=== PATIENT | male | born 2005 | race Caucasian/White ===

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

== ENCOUNTER 2023-05-05 12:17 | Emergency (ER) | payer BC, MEDICAID, SELFPAY ==
[2023-05-05 12:17] VITALS: BP 177/95; PULSE 100; RESP 14; TEMP 36.2; O2SAT 99
[2023-05-05 12:20] VITALS: BP 146/83; PULSE 97; RESP 14; O2SAT 98
--- NOTE | 2023-05-05 12:33 | RAD_ITS ---
STUDY: X-RAY - LEFT KNEE REASON FOR EXAM: Male, 17 years old. Knee pain TECHNIQUE: 3 view(s) of the knee. COMPARISON: None. FINDINGS: Normal visualized distal femur. Normal visualized proximal tibia and fibula. Normal proximal tibiofibular articulation. Normal medial femorotibial compartment. Normal lateral femorotibial compartment. Normal patellofemoral articulation. The soft tissue structures are unremarkable. RAD/Knee 3 Views IMPRESSION: Normal x-ray examination of the knee. Electronically Signed: José Miguel Reza MD at 13:21 EDT ,
--- NOTE | 2023-05-05 12:37 | ED.VIS.LOWEX ---
HPI <MILE Arceo - Last Filed: 05/05/23 17:28> History of Present Illness Chief Complaint: Lower Extremity Injury Narrative Narrative: Patient presents today with pain to his left knee. He reports that he was at work driving a large tree limb and was walking sideways when it felt like his patella popped out of place and then clicked back in, however he felt instant pain to his left knee and is having a hard time bearing weight onto his left leg without pain. He reports that he thinks his patella has spontaneously popped out in the past but went back into place easily. He originally went to urgent care but was told that they did not have an x-ray tech and presents here for evaluation. PFSH <MILE Arceo - Last Filed: 05/05/23 17:28> [facility] Home Medications amoxicillin 500 mg-potassium clavulanate 125 mg tablet (Augmentin) 1 ea PO TID #30 tabs 07/22/16 [Rx Last Taken Unknown] Allergy/AdvReac Type Severity Reaction Status Date / Time No Known Allergies Allergy Verified 05/05/23 12:18 Social History Smoking Status: Never smoker ROS <MILE Arceo - Last Filed: 05/05/23 17:28> ROS ED Constitutional Constitutional ED: Denies chills or fever(s) Cardiovascular Cardiovascular: Denies chest pain Respiratory/Chest Respiratory/Chest: Denies cough or dyspnea Gastrointestinal Gastrointestinal: Denies abdominal pain, nausea or vomiting Genitourinary Genitourinary ED: Denies dysuria, hematuria or urinary urgency Musculoskeletal Musculoskeletal: Reports arthralgias; Denies myalgias Integumentary Reports Abrasions Neurologic Neurologic: Denies paresthesias Allergic/Immunologic Allergic/Immunologic ED: Denies lip swelling, mouth swelling or urticaria EXAM <MILE Arceo - Last Filed: 05/05/23 17:28> Physical Exam Const Vital Signs: 05/05/23 12:17 05/05/23 12:20 05/05/23 13:09 Temperature 97.2 F L 97.6 F L Temperature Source Temporal Pulse Rate 100 97 64 Respiratory Rate 14 14 14 Blood Pressure 177/95 H 146/83 H 128/78 H Blood Pressure Mean 122 104 94 Pulse Ox 99 98 99 Oxygen Delivery Method Room Air Room Air Positive well nourished, well developed and no apparent distress General Appearance ED: well developed HEENT Reports normocephalic and head/scalp atraumatic Mouth ED: Yes moist mucous membranes normal Eyes PERRL and EOMs intact bilaterally Neck full ROM and supple Chest Wall inspection of chest normal Resp normal respiratory effort and clear to auscultation bilaterally Cardio regular rate and regular rhythm GI soft to palpation, non-tender, non-distended and no masses Back/Spine normal ROM and normal to inspection Extremity normal to inspection and full ROM Extremity Narrative: Flexion extension is intact, no joint effusion, generalized pain to palpation, especially to the medial aspect of the left knee. Negative anterior and posterior drawer test. Neuro oriented x3, CN's II-XII intact bilaterally, moves all extremities, no focal motor deficits and no sensory deficits noted Sensorium / Orientation: awake and alert Psych mental status grossly normal and thought process normal Skin no rashes or lesions noted and no wounds <Dr. Juanjose Tompkins MD - Last Filed: 05/05/23 13:08> Physical Exam Const Vital Signs: 05/05/23 12:17 05/05/23 12:20 05/05/23 13:09 Temperature 97.2 F L 97.6 F L Temperature Source Temporal Pulse Rate 100 97 64 Respiratory Rate 14 14 14 Blood Pressure 177/95 H 146/83 H 128/78 H Blood Pressure Mean 122 104 94 Pulse Ox 99 98 99 Oxygen Delivery Method Room Air Room Air [facility] <MILE Arceo - Last Filed: 05/05/23 17:28> [facility] Narrative Medical decision making narrative: Patient presenting today with left knee pain to the lateral aspect of his knee, no joint effusion, intact flexion and extension. There is no laxity. X-ray was obtained and negative for any bony abnormality. He was given a brace from urgent care, I have encouraged that he continue using this. He was given ibuprofen for pain and have encouraged NSAIDs for his pain as needed. RICE instructions given. I will give him a orthopedic referral and he will be discharged home in stable condition and is comfortable with plan. I have personally performed a face to face assessment of the patient and have reviewed the LORI Note. I performed a substantive portion of the visit including all aspects of the following. My corbin findings include: History is [17-year-old male has a history knee pain. He is never had it evaluated. 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 Today he felt 2 pops and has pain lateral to his left knee. Denies any fall injury or trauma. No prior knee surgery. No redness, swelling or fever. Discomfort with movement.] Exam is [well-appearing 17-year-old male. Vital signs stable afebrile. HEENT exam normal. Lungs clear. Heart regular rhythm. Chest wall ribs nontender. Abdomen soft nontender. Moving all 4 extremities. He has his left knee flexed at a 90 degree position. He can do full flexion. He has more discomfort with extension and can extend to about 180 degrees. There is no effusion. He has tenderness on the lateral outside aspect of his left knee. There is no redness or warmth. No significant swelling. Kneecaps in good position. Quadriceps patellar and infrapatellar tendon are intact. ACL and PCL are intact. As is his lateral collateral medial collateral ligaments. Distally his left ankle and foot are nontender. Normal dorsi plantarflexion. Normal strength and sensation.] Medical Decision Making [left knee x-ray being obtained.] Other additions or changes: [None] Radiography X-Ray: Read by ED Physician Diagnostic Testing: Clinical Impression(s) from Imaging Studies Knee X-Ray 05/05/23 12:33 IMPRESSION: Normal x-ray examination of the knee. Electronically Signed: José Miguel Reza MD at 13:21 EDT , <Dr. Juanjose Tompkins MD - Last Filed: 05/05/23 13:08> [facility] Narrative Medical decision making narrative: I have personally performed a face to face assessment of the patient and have reviewed the LORI Note. I performed a substantive portion of the visit including all aspects of the following. My corbin findings include: History is [17-year-old male has a history knee pain. He is never had it evaluated. 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 Today he felt 2 pops and has pain lateral to his left knee. Denies any fall injury or trauma. No prior knee surgery. No redness, swelling or fever. Discomfort with movement.] Exam is [well-appearing 17-year-old male. Vital signs stable afebrile. HEENT exam normal. Lungs clear. Heart regular rhythm. Chest wall ribs nontender. Abdomen soft nontender. Moving all 4 extremities. He has his left knee flexed at a 90 degree position. He can do full flexion. He has more discomfort with extension and can extend to about 180 degrees. There is no effusion. He has tenderness on the lateral outside aspect of his left knee. There is no redness or warmth. No significant swelling. Kneecaps in good position. Quadriceps patellar and infrapatellar tendon are intact. ACL and PCL are intact. As is his lateral collateral medial collateral ligaments. Distally his left ankle and foot are nontender. Normal dorsi plantarflexion. Normal strength and sensation.] Medical Decision Making [left knee x-ray being obtained.] Other additions or changes: [None] History & Record Review Discussion w/independent historian: Patient and Family Radiography Diagnostic Testing: Clinical Impression(s) from Imaging Studies Knee X-Ray 05/05/23 12:33 IMPRESSION: Normal x-ray examination of the knee. Electronically Signed: José Miguel Reza MD at 13:21 EDT , Left knee x-ray, 3 views, interpreted by myself shows no acute abnormality. Normal joint space. Normal bones. No fracture. No significant effusion. Discharge Plan Triage Chief Complaint: Lower Extremity Injury ED Midlevel Provider: Liz Cifuentes ED Provider: Juanjose Tompkins Dx/Rx/DC Orders Clinical Impression: Knee pain, left Instructions: ED Knee Sprain Prescriptions: No Action amoxicillin-pot clavulanate [Augmentin] 1 EACH tablet 1 ea PO TID Qty: 30 0RF Primary Care Provider: Care Physician,No Primary Referrals: Jay Mojica MD [Med Staff - Active Staff] - 1 Week if not improving Care Physician,No Primary [Primary Care Provider] - Activity Restrictions/Additional Instructions: You can take 400 mg ibuprofen every 4-6 hours for your pain as needed. Please follow-up with orthopedics. Disposition Disposition: Home, Self Care Discharge Date/Time: 05/05/23 13:15
[2023-05-05] MEDS: Ibuprofen 600 MG Tablet PO (12:54)
[2023-05-05 13:09] VITALS: BP 128/78; PULSE 64; RESP 14; TEMP 36.4; O2SAT 99
== END 2023-05-05 13:15 | disposition home or self-care (01) ==
PROVIDERS: Emergency Provider Emergency Medicine; Visit Provider Emergency Medicine
DX: M25.562 Pain in left knee (principal)
CPT/HCPCS: 73562; 99282

== ENCOUNTER → 2023-05-25 | Outpatient (CLI) | payer BC, MEDICAID, SELFPAY ==
--- NOTE | 2023-05-25 07:25 | MRI_ITS ---
STUDY: MRI LEFT KNEE REASON FOR EXAM: Male, 17 years old. assess MCL and PF instability LEFT LATERAL KNEE PAIN/TROUBLE FEELS A PULLING ON OCCASION X 3 WEEKS PREVIOUS XRAY 05/05/23 TECHNIQUE: Standardized fat and water weighted pulse sequences were obtained in all 3 orthogonal planes. COMPARISON: None. FINDINGS: A small linear tear is present on the proximal articular surface and root insertion of the medial meniscus. Normal body and anterior horn of the medial meniscus. Normal hyaline cartilage of the medial femorotibial compartment. Normal medial femoral condyle and tibial plateau. Normal medial collateral ligamentous complex (MCL). Normal distal semimembranosus, gracilis and semitendinosus tendons. A large bucket-handle tear of the anterior to posterior aspect of the lateral meniscus is present with flipped fragments in the anterior and posterior intercondylar notch regions. Normal hyaline cartilage of the lateral femorotibial compartment. Normal lateral femoral condyle and tibial plateau. Normal proximal tibiofibular articulation. Normal lateral collateral (fibular) ligament. Normal popliteus tendon. Normal biceps femoris tendon. Normal anterior cruciate ligament (ACL). Normal posterior cruciate ligament (PCL). Normal congruent patellofemoral articulation. Normal hyaline cartilage of the patellofemoral compartment. Normal medial and lateral patellar retinaculum. Normal quadriceps tendon. Normal patellar tendon. Normal Hoffa''s fat pad. A moderate size joint effusion is present. The soft tissues are unremarkable. The otherwise visualized osseous structures are unremarkable. MRI/Lower Ext Joint Only (Routine) IMPRESSION: 1. Large bucket-handle tear of the lateral meniscus 2. Multiple linear tear in the proximal articular surface and root insertion of the medial meniscus 3. Moderate size joint effusion Electronically Signed: Darren Rosado MD at 10:01 EDT Reading Location ID and State: [facility] / [place] , Service support ,
== END | disposition home or self-care (01) ==
LOC: MRI 07:21
PROVIDERS: Referring Provider Orthopaedic Surgery Sports Medicine; Visit Provider Orthopaedic Surgery Sports Medicine
DX: M25.562 Pain in left knee (principal)
CPT/HCPCS: 73721

== ENCOUNTER 2023-05-31 08:07 | Day surgery (SDC) | payer BC, MEDICAID, SELFPAY ==
[2023-05-31] VITALS (10 sets, daily range): BP systolic 101–140; BP diastolic 51–85; PULSE 75–93; RESP 14–18; TEMP 36.1–36.8; O2SAT 76–100; BMI 32.2
[2023-05-31] MEDS: Lactated Ringers 1,000 ML 15 ML IV (08:30)
[2023-05-31] MEDS: Cefazolin 2 GM in 0.9% Normal Saline (100mL Bag) 100 ML IV (09:25)
--- NOTE | 2023-05-31 09:25 | HP.PCM_ITS ---
HPI - General HPI Narrative LEON SMITH, is a 17 M who presents for left knee arthroscopy, repair of the medial and lateral meniscus. no changes to h and p. ok with proceeding. left knee marked. rab, narcotic counselling, and post op instructions given. consent updated. [id number] Acct: [id number] Name: LEON SMITH Rep #: [id number] : 2005 Provider: Dr. 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 Jay Mojica MD 05/26/23 0922. Part of today?s visit was documented by [ ], acting as scribe. LEON SMITH is a 17 year old M here today for FU L knee MRI. still catching, was doing for a while before the most recent injury. Ortho Exam General General: Yes no acute distress Neurologic: Yes alert and Yes oriented x3 Psychologic: Yes reasonable and appropriate Supplemental Info [facility] [address] [place] [address] Lower Ext Joint Only (Routine) MR#: [id number] Acct: [id number] Name: LEON SMITH Rep #: [id number] : 2005 M 17 From: Darren Rosado MD PCP: Care Physician,No Primary Status: REG CLI Study: Lower Ext Joint Only (Routine) Date of Exam: 05/25/23 Exam# [id number] Ordering Dr: Jay Mojica MD STUDY: MRI LEFT KNEE REASON FOR EXAM: Male, 17 years old. assess MCL and PF instability LEFT LATERAL KNEE PAIN/TROUBLE FEELS A PULLING ON OCCASION X 3 WEEKS PREVIOUS XRAY 05/05/23 TECHNIQUE: Standardized fat and water weighted pulse sequences were obtained in all 3 orthogonal planes. COMPARISON: None. FINDINGS: A small linear tear is present on the proximal articular surface and root insertion of the medial meniscus. Normal body and anterior horn of the medial meniscus. Normal hyaline cartilage of the medial femorotibial compartment. Normal medial femoral condyle and tibial plateau. Normal medial collateral ligamentous complex (MCL). Normal distal semimembranosus, gracilis and semitendinosus tendons. A large bucket-handle tear of the anterior to posterior aspect of the lateral meniscus is present with flipped fragments in the anterior and posterior intercondylar notch regions. Normal hyaline cartilage of the lateral femorotibial compartment. Normal lateral femoral condyle and tibial plateau. Normal proximal tibiofibular articulation. Normal lateral collateral (fibular) ligament. Normal popliteus tendon. Normal biceps femoris tendon. Normal anterior cruciate ligament (ACL). Normal posterior cruciate ligament (PCL). Normal congruent patellofemoral articulation. Normal hyaline cartilage of the patellofemoral compartment. Normal medial and lateral patellar retinaculum. Normal quadriceps tendon. Normal patellar tendon. Normal Hoffa''s fat pad. A moderate size joint effusion is present. The soft tissues are unremarkable. The otherwise visualized osseous structures are unremarkable. MRI/Lower Ext Joint Only (Routine) IMPRESSION: 1. Large bucket-handle tear of the lateral meniscus 2. Multiple linear tear in the proximal articular surface and root insertion of the medial meniscus 3. Moderate size joint effusion Electronically Signed: Darren Rosado MD at 10:01 EDT Reading Location ID and State: [address] [place] [address] , Service support , Coding Level of Care Code Off vis,est,level 4 Diagnoses Bucket handle tear of lateral meniscus of left knee S83.252A Tear of medial meniscus of left knee S83.242A Assessment and Plan Assessment and Plan (1) Bucket handle tear of lateral meniscus of left knee: Status: Acute Plan: 17-year-old man with a bucket-handle tear lateral meniscus as well as a tear near the root of the medial meniscus generally this is recommended for urgent montoya rgical intervention to repair of the lateral meniscus bucket-handle tear to prevent further degeneration and tearing of the meniscus and the cartilage in the knee. Also may benefit from the repair of the medial meniscus depending on the appearance during surgery. Without surgery the long-term issues would likely be worse in terms of damage to the cartilage and meniscus of the knee continued pain and swelling. The patient understands wishes to go ahead with a left knee arthroscopy, repair of the medial and lateral meniscus. Pros and cons risks and benefits were discussed with the patient including but not limited to infection, pain, stiffness, bleeding, damage to surrounding structures, neurovascular injury, recurrence or retear, failure or wear of hardware or fixation, instability, fracture, deep vein thrombosis and pulmonary embolism, anesthetic risks, , patient dissatisfaction, need for further surgery and other risks. Patient understood and wished to proceed with surgery, and signed the informed consent documentation. (2) Tear of medial meniscus of left knee: Status: Acute 05/26/23 1115 <Electronically signed by Jay Mojica MD> Date Jay Mojica MD Cosigner Signature: Date (if applicable) [facility] Medical History (Updated 05/30/23 @ 10:10 by Jayshree Leon) Alcohol use Asthma Back pain Bucket handle tear of lateral meniscus of left knee Cut of hand History of dog bite History of edema Non-smoker Shortness of breath on exertion Tear of medial meniscus of left knee Home Medications NK 05/26/23 [History Last Taken Unknown] Allergy/AdvReac Type Severity Reaction Status Date / Time No Known Allergies Allergy Verified 05/31/23 08:25 Surgical History (Updated 05/30/23 @ 10:10 by Jayshree Leon) Hx of tonsillectomy Social History Smoking Status: Never smoker alcohol intake: never 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
[2023-05-31] MEDS: Epinephrine (1 mg/ml) 1 MG/ML VIAL (10:03)
[2023-05-31] MEDS: Bupivacaine 0.25% 30 ML Vial (10:25)
--- NOTE | 2023-05-31 10:33 | OP.PCM_ITS ---
Problems Associated Problem List Diagnoses (1) Bucket handle tear of lateral meniscus of left knee: (2) Tear of medial meniscus of left knee: Report of Operation Date of Procedure: 05/31/23 Pre-Operative Diagnosis: L knee medial and lateral meniscus tear Post-Operative Diagnosis: same Surgery/Procedure Performed:: L knee repair of lateral and medial meniscus Surgeon: Jay Mojica Type of Anesthesia: General and Local Anesthesiologist: Dereck An Estimated Blood Loss (mL): 20 Description of Procedure: Patient brought to the operating room theater. Placed upon on the operating table. All bony prominences padded. SCD on the nonoperative leg. General anesthesia induced. Tourniquet applied to left thigh. Left lower extremity prepped and draped in the usual sterile fashion for with chlorhexidine based solution allowing over 3 minutes drying time prior to draping. Stress positi anu to the patient's left side. Preoperative timeout performed to confirm the site patient and the surgery. Elevated the leg, and inflated the tourniquet to 250 mmHg. The standard anterolateral and AM portals as well as accessory anterolateral and anteromedial arthroscopy portals. Did a full diagnostic arthroscopy. Medial lateral gutters entered no loose bodies. Patellofemoral joint appeared normal normal cartilage in all 3 compartments. Ligamentum mucosum debrided and removed. ACL and PCL appeared normal. There is an obvious bucket-handle tear displaced into the notch of the lateral meniscus. I examined this I reduced it. Put the leg in [id number] position. Assess the tear. This did not involve the roots but was for most of the outer third of the meniscus at the capsular junction. I reduced the tear. I used a rasp to stimulate healing at the capsular side. I used 5 Arthrex fiber stitch all inside suture repair devices in both horizontal and vertical mattress fashion avoiding the popliteus tendon. I probed the tear was stable and solid good repair. Next I turned attention to the medial meniscus. The root appeared intact but there was a small ramp tear. I decided to fix this with a vertical mattress Arthrex fiber stitch suture. This was stable and solid to probing. Final arthroscopy pictures were taken and saved throughout the case onto the system. Wound cleaned, tourniquet taken down wound thoroughly irrigated. Good hemostais. Portals closed with 3-0 Monocryl sutures as well as Steri-Strips. 10 cc of 0.25% bupivacaine instilled around the incision site. Adaptic 4 x 4 gauze ABD dressing with Alberto wrap and hinged knee brace locked in full extension was then placed. Patient woken up from general anesthetic transferred off the operating table t [facility] postanesthetic care unit in stable addition. All sponge needle instrument counts were correct no complications. Plan to the patient weightbearing as tolerated in full extension only with crutches and brace at 0, for 6 weeks and passive range of motion with therapy only 0 to 90 degrees for 6 weeks. cpt 63346? Complications none Admit VTE Documentation VTE Present on Admission: No VTE Mechan Device Prophylaxis: SCD's VTE Pharm Prophylaxis ordered?: No Reason prophylaxis not ordered:: Treatment Not Indicated Procedures Musculoskeletal [id number]: Other Procedure See Report
--- NOTE | 2023-05-31 10:44 | DCINST_ITS ---
Discharge Instructions Diet Discharge Diet: No restrictions Activity Discharge Activity: Use Crutches Lifting Restrictions: weight bearing with knee straight only. Keep extremity elevated above heart level: Operative Extremity Dressing / Incision Call your doctor if your incision/area has: Continuous Slow Oozing, Sudden Increased Bleeding, Increased Pain/ Swelling, Increased Redness, Foul Smelling Discharge and Swelling at the incision site Remove Dressing in: leave in place till F/U Follow Up Care Please Follow Up With: Jay Mojica MD When: 2 days Test Results: Test results from this visit will be discussed in further detail at your follow- up appointment, if applicable. Discharge Plan Admission Attending Provider: Jay Mojica Primary Care Provider: Care Physician,No Primary Discharge Orders/Prescriptions Prescriptions: New oxycodone-acetaminophen [Percocet] 5-325 mg tablet 1 tab PO Q4H MDD 6 PRN (Reason: pain) 5 Days Qty: 20 0RF Referrals / Follow Up: Jay Mojica MD [Med Staff - Active Staff] - Care Physician,No Primary [Primary Care Provider] - Disposition Disposition (needs filled in before D/C Order can be placed): Home, Self Care
[2023-05-31] MEDS: Oxycodone/Apap 5/325 Tablet PO (12:33)
== END 2023-05-31 12:52 | disposition home or self-care (01) ==
LOC: SDC 08:14 → AC 08:17
PROVIDERS: Referring Provider Orthopaedic Surgery Sports Medicine; Visit Provider Orthopaedic Surgery Sports Medicine
PROC: (CPT 29870; principal; 2023-05-31 09:10)
DX: S83.252A Bucket-handle tear of lateral meniscus, current injury, left knee, initial encounter (principal); S83.242A Other tear of medial meniscus, current injury, left knee, initial encounter; X58.XXXA Exposure to other specified factors, initial encounter
CPT/HCPCS: 29883; 01400; J7120; J2405

== ENCOUNTER 2023-07-13 17:30 | Outpatient (RCR) | payer BC, MEDICAID, SELFPAY ==
--- NOTE | 2023-06-09 13:46 | HP.PTEVAL ---
Patient's Visit Information Visit Information Visit Information: LEON SMITH is a 17 year old M referred to Physical Therapy by Dr. Jay Mojica MD with a diagnosis of BUCKET-HANDLE TEAR OF LATERAL MENISCUS ,MEDIAL TEAR OF MENISCUS. Date of Evaluation: 06/09/23 Physical Therapist: Yrn Busby, PT, Cert MDT, OCS Visit Plan Frequency: 2x /Week Duration: Indefinite Plan: S/P MEDIAL /LATERAL MENISCUS SURGERY /05/31/23 PATIENT IS ABLE TO BE WBAT WITH BRACE LOCKED IN EXTENSION SEE GUIDELINES FOR MENISCUS REPAIR PT INTERVENTIONS INITIALLY ROM 0-90 DEGREES , MAT EX'S ,PROGRESS TO STRENGTHENING QUADS/HAMS/HIP CLOSE CHAIN PER GUIDELINES ,WB ACTIVITIES ,GAIT TRAINING,PROPRIOCEPION ,CP AND VASO Subjective Subjective: This 17 y/o male presents to physical therapy with meniscus tear medial and lateral bucket handle tear of left knee. Patient underwent s/p repair medial and lateral meniscus on on 05/31/[address] Mojica at [facility]. Patient okay WBAT with brace locked in extension and ROM 0-90 degrees for 6 weeks. Patient injury twisted knee walking awkward sideways carry branch . Patient had immediate pain seen ER x-rays - . Referred to DR Mojica did MRI showed meniscus medial and lateral . Patient denies paresthesia/tingling -. Medication percocet. Patient has difficulty sleeping. Patient has been ice for pain and edema. Patient has difficulty with ADLS and houseworks and unable to RTW. Patient recently had baby . Patient goals to return to work. Patient June 14 . SOCIAL: VOCATION: [employer] Pain Left Knee: Pain Intensity (Out of 10): 1 Pain Intensity Range: 10 Objective Objective: POSTURE: mild forward posture ,knee flexed ,brace located in extension GAIT: ambulated with knee brace locked in extension with NWB LLE EDEMA: 2+ thigh/knee MID-PATELLA: 46.8 cm 6 SUPRAPATELLAR: 58.3 cm QUADS CONTRACTION: poor NEURO: denies paresthesia/tingling SKIN: incision well approximate bandage intact AROM : 8-82 degrees supine kn ee flexion MMT: ( peak force) quads/hams/hip 0 --NT Balance/Special Test Scores Lower Extremity Functional Score: 16 Goals Goal 1:: Patient to be I with HEP meniscus repair Goal Time Frame: 8-12 Weeks Goal 2:: Patient to ambulate with normal gait pattern. Goal Time Frame: 8-12 Weeks Goal 3:: Patient to improve AROM supine knee flexion 0-130 degrees for stairs and RTW Goal Time Frame: 8-12 Weeks Goal 4:: Patient to improve peak force quads/hams/hip by 20-30 # strength to RTW and ADLS Goal Time Frame: 8-12 Weeks Goal 5:: Patient to demonstrate 75% improvement with function and ADLS Goal Time Frame: 8-12 Weeks Goal 6:: Patient to improve LFES core by 20 points to improve QOL Goal Time Frame: 8-12 Weeks Rehabilitation Potential Physical Therapy Diagnosis: Patient underwent s/p medial/lateral meniscus repair with decrease ROM ,edema ,weakness quads/hams/hip ,decrease gait and balance/proprioception and unable to return work and normal functional activity thus benefit from skilled PT Rehabilitation Potential: Good Anticipated Interventions Therapeutic Exercise to Include: Strength training, Balance training, Flexibilty training, Gait and locomotor training, Passive ROM and Active ROM For the Purpose of:: To decrease pain, To increase ROM, To improve muscle performance and motor function, To increase tolerance to activity/condition/position, To improve ability of physical actions for home/community/work/leisure, To improve gait and locomotor functions, To decrease soft tissue restriction, To increase flexibility/ROM, To improve endurance, To improve balance and To improve tolerance to ADL's TENS: Yes IF ES: Yes Cryotherapy (ice pack, ice massage): Yes Thermo therapy (hot pack): Yes Vasopneumatic device: Yes For the Purpose of:: To decrease pain, To increase ROM, To improve nutrient delivery to tissue, To increase oxygenation perfusion, To improve health of tissue and To decrease soft tissue restriction Text: Thank you for the opportunity to evaluate your patient. For Medicare and Medicare HMO plans, please review the plan of care and approve it. It will need to be FAXED BACK to us at [phone] for Medicare purposes. For Medicare only, by signing this I certify the plan of care. Please let me know if there are questions or concerns regarding this plan of care. Physician Signature: Date:
--- NOTE | 2023-09-18 13:05 | HP.PTDCSUM ---
Discharge Summary D/C summary: It has been my pleasure to treat LEON SMITH referred by Dr. Jay Mojica MD, with the diagnosis of BUCKET-HANDLE TEAR OF LATERAL MENISCUS ,MEDIAL TEAR OF MENISCUS (Left) for a total of 8 visit(s). Discharge Date: Please see the following information for a summary of their discharge status. Subjective Subjective: Seen DR removed brace Although loose both insurances . so cant afford insurance Pain Left Knee: Pain Intensity (Out of 10): 0 Objective Objective/Function: Did well with ex's above added ex's with HEP handout provided no pain just fatigue THERABAND and handout provided AROM -0-120 KNEE FLEXION quads/hams 4-5. Goals Goal 1:: Patient to be I with HEP meniscus repair Goal 2:: Patient to ambulate with normal gait pattern. Goal 3:: Patient to improve AROM supine knee flexion 0-130 degrees for stairs and RTW Goal 4:: Patient to improve peak force quads/hams/hip by 20-30 # strength to RTW and ADLS Goal 5:: Patient to demonstrate 75% improvement with function and ADLS Goal 6:: Patient to improve LFES core by 20 points to improve QOL Plan Plan: d/c due to insurance S/P MEDIAL /LATERAL MENISCUS SURGERY /05/31/23 OFF BRACE SEE GUIDELINES FOR MENISCUS REPAIR PROGRESS TO STRENGTHENING QUADS/HAMS/HIP CLOSE CHAIN PER GUIDELINES ,WB ACTIVITIES ,GAIT TRAINING,PROPRIOCEPION ,CP AND VASO D/C Information d/c sentence: If there are questions or concerns regarding this patient's physical therapy, please feel free to call me at [phone]. Thank you for the referral of this patient. Sincerely, Yrn Busby, PT, Cert MDT, OCS Balance/Gait/Functional tests Balance/Special Test Scores Lower Extremity Functional Score: 16
== END 2023-07-13 19:00 | disposition home or self-care (01) ==
LOC: PT 17:30
PROVIDERS: Referring Provider Orthopaedic Surgery Sports Medicine; Visit Provider Orthopaedic Surgery Sports Medicine
DX: S83.242D Other tear of medial meniscus, current injury, left knee, subsequent encounter (principal); S83.252D Bucket-handle tear of lateral meniscus, current injury, left knee, subsequent encounter
CPT/HCPCS: 97016; 97110; 97161

== ENCOUNTER 2023-09-26 16:57 | Inpatient (IN) | payer BC, SELFPAY ==
[2023-09-26] VITALS (10 sets, daily range): BP systolic 121–145; BP diastolic 4–95; PULSE 87–120; RESP 18–25; TEMP 36.9–38.6; O2SAT 92–97; BMI 33.5; BMI 34.7
--- NOTE | 2023-09-26 17:27 | ED.VIS.DYS ---
HPI History of Present Illness Chief Complaint: Shortness of Breath [facility] Medical History Alcohol use Cut of hand Back pain Shortness of breath on exertion Asthma Non-smoker History of edema Tear of medial meniscus of left knee Bucket handle tear of lateral meniscus of left knee History of dog bite Home Medications ?Medication ?Instructions ?Recorded ?Last Taken ?Type NK 08/24/23 Unknown History Allergy/AdvReac Type Severity Reaction Status Date / Time No Known Allergies Allergy Verified 09/26/23 16:58 Family History no significant family his Surgical History Hx of tonsillectomy Social History Smoking Status: Never smoker alcohol intake: never 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 Physical Exam Const Vital Signs: 09/26/23 16:58 09/26/23 16:59 09/26/23 17:09 Temperature 98.9 F 101.4 F H Temperature Source Temporal Oral Pulse Rate 120 H 117 H Respiratory Rate 25 H 18 Respiratory Effort Short of Breath Respiratory Depth Normal Respiratory Pattern Tachypnea Blood Pressure 145/93 H 137/63 H Blood Pressure Mean 110 87 Pulse Ox 93 95 Oxygen Delivery Method Room Air Room Air Room Air Oxygen Flow Rate (L/min) Fraction of Inspired Oxygen (FIO2) 09/26/23 17:29 09/26/23 17:59 09/26/23 18:00 Temperature 101.4 F H 101.4 F H Temperature Source Oral Oral Pulse Rate 98 100 Respiratory Rate 24 H 25 H Respiratory Effort Respiratory Depth Respiratory Pattern Blood Pressure 131/66 H 131/66 H Blood Pressure Mean 87 87 Pulse Ox 92 96 Oxygen Delivery Method Room Air Room Air Nasal Cannula Oxygen Flow Rate (L/min) 2 Fraction of Inspired Oxygen (FIO2) 09/26/23 18:07 09/26/23 18:57 09/26/23 18:59 Temperature 99.0 F Temperature Source Oral Pulse Rate 87 87 Respiratory Rate 25 H 25 H Respiratory Effort Respiratory Depth Respiratory Pattern Blood Pressure 143/4 H 143/64 H Blood Pressure Mean 50 90 Pulse Ox 97 97 Oxygen Delivery Method Nasal Cannula Nasal Cannula Nasal Cannula Oxygen Flow Rate (L/min) 3 3 3 Fraction of Inspired Oxygen (FIO2) 96 09/26/23 20:00 09/26/23 20:00 Temperature 98.6 F 98.6 F Temperature Source Oral Oral Pulse Rate 93 93 Respiratory Rate 18 21 H Respiratory Effort Respiratory Depth Respiratory Pattern Blood Pressure 127/71 H 127/71 H Blood Pressure Mean 89 89 Pulse Ox 94 94 Oxygen Delivery Method Room Air Room Air Oxygen Flow Rate (L/min) Fraction of Inspired Oxygen (FIO2) [facility] [place] Narrative Medical decision making narrative: HISTORY OF PRESENT ILLNESS: 18-year-old male presents with shortness of breath, cough fatigue. Notes he was COVID-positive on Monday. He further states he got more short of breath today. Denies chest pain but no shortness of breath. Thinks he may have pneumonia by the way it sounds. REVIEW OF SYSTEMS: Pertinent positives: Cough, shortness of breath or fatigue Pertinent negatives: Leg swelling PHYSICAL EXAM: Nursing triage notes reviewed, Vital signs reviewed Constitutional: please see [facility] HENT: MMM Eyes: Pupils equal round and reactive to light, Extraocular muscles intact Neck: No stridor, no JVD, full neck ROM Lungs: Clear to auscultation bilaterally no obvious auscultated consolidation, No wheezing or rales. No increased work of breathing, no conversational dyspnea, no accessory muscle use, no nasal flaring. No respiratory distress noted Heart: Fast rate but regular rhythm no murmurs, No rubs and No gallops, 2+ distal pulses (radial, femoral, posterior tibial) in all extremities Abdomen: Soft, there is no tenderness, rigidity, rebound or guarding, no obvious peritoneal signs, no palpable pulsatile abdominal masses, no auscultated abdominal bruit : No CVAT Extremities: No edema Neuro: No focal neurological deficits, cranial nerves II through XII intact, 5/5 strength in all extremities. Intact sensation to light touch in all extremities, 2+ reflexes bilateral patella tendons. Normal gait. No ataxia. Skin: No rash or lesions noted MEDICAL DECISION MAKING: Chief Complaint: Cough, shortness of breath fatigue, COVID-positive External records reviewed: No recent [place] imaging of the chest Factors affecting care: Asthma [facility] Narrative: Patient was initially tachycardic rate 117, febrile at 101.4. Exam without focal consolidative process. I considered the following differential diagnosis: Bacterial pneumonia, electro disturbance, anemia, PE, arrhythmia, ACS I obtained a broad lab and imaging workup to further elucidate the etiology the patient complaint Patient was initially treated with IV fluids, Tylenol and Toradol for symptomatic control and defervesce. ALL IMAGES (IF OBTAINED) HAVE BEEN PERSONALLY REVIEWED AND INTERPRETED BY MYSELF. EKG with sinus tachycardia rate of 111, normal axis, normal intervals, no obvious STEMI, no stigmata pericarditis, no signs of heart strain CBC with no leukocytosis to suggest active inflammation, no anemia or thrombocytopenia D-dimer elevated consistent with increased clot breakdown more concerning for VTE BMP with hyponatremia, hypokalemia, no evidence of metabolic acidosis, no evidence of endorgan hypoperfusion with normal anion gap Initial troponin elevated consistent with myocardial ischemia, there were no EKG changes to suggest STEMI is likely demand ischemia versus myocarditis/pericarditis BNP within normal limits suggestive of no increased ventricular stretch or heart strain Chest x-ray was read and reviewed personally myself shows evidence of left lower lobe infiltrate CT of the chest shows no evidence of PE but shows left lower lobe pneumonia Given borderline hypoxia, elevated troponin, evidence of commune acquired pneumonia and COVID-19 patient will need admission. He was given aspirin, ceftriaxone and azithromycin. The patient and/or family, caregivers express understanding. The patient and/or family, caregivers agrees with the plan. Shared decision making: I will have a discussion with the patient and or visitors regarding risk/benefits of further testing or admission. They will be made aware of of the risk/benefits inherent in this decision they will be given the opportunity to voice understanding. Total critical care time today provided was at least 35 minutes. This excludes separately billable procedures. Critical care time (if documented) is secondary to the patient having high probability of clinically significant/life threatening deterioration in the patient's condition which required my urgent intervention. Impression: 1. COVID-19 2. Elevated troponin 3. Community-acquired pneumonia Dispo: Admit to PCU This note was generated with [employer] dictation software. It may contain incorrect words, spelling, and punctuation that were not noted in review of the chart prior to signing. Lab Data Labs: Laboratory Results - last 24 hr 09/26/23 17:20 WBC 10.6 RBC 5.44 Hgb 15.6 Hct 45.4 MCV 83.5 MCH 28.7 MCHC 34.4 RDW Std Deviation 39.1 RDW Coeff of Yuniel 13.0 Plt Count 251 MPV 9.7 Immature Gran % (Auto) 0.600 Neut % (Auto) 68.8 Lymph % (Auto) 10.5 L Taliaferro % (Auto) 19.1 H Eos % (Auto) 0.5 Baso % (Auto) 0.5 Absolute Neuts (auto) 7.3 Absolute Lymphs (auto) 1.12 Nucleated RBC % 0 Differential Comment SEE COMMENT Platelet Estimate ADEQUATE RBC Morphology NORM C+C D-Dimer Quant (PE/DVT) 1.39 H* Sodium 134 L Potassium 3.1 L Chloride 99 Carbon Dioxide 24.0 Anion Gap 11 BUN 10 Creatinine 1.01 Estim Creat Clear Calc 137.99 Est GFR (MDRD) Af Amer 121 Est GFR (MDRD) Non-Af 100 BUN/Creatinine Ratio 9.9 L Glucose 112 H Calcium 9.0 Troponin I High Sens 194 H* Radiography Diagnostic Testing: Clinical Impression(s) from Imaging Studies Chest X-Ray 09/26/23 17:45 IMPRESSION: Left lower lung infiltrate. Electronically Signed: Sharif Grossman MD at 18:38 EDT , Chest CTA 09/26/23 18:28 IMPRESSION: CTA chest examination, without a demonstrated pulmonary embolism or arterial dissection. Left lower lobe pneumonia. Electronically Signed: Sharif Grossman MD at 19:23 EDT , Discharge Plan Triage Chief Complaint: Shortness of Breath ED Provider: Ignacio Barrios Dx/Rx/DC Orders Clinical Impression: COVID-19, Elevated troponin, Left lower lobe pneumonia Primary Care Provider: Care Physician,No Primary Disposition Disposition: Acute Care [facility]
[2023-09-26] MEDS: 0.9% Normal Saline (1000mL) 1,000 ML 999 ML IV (17:34)
[2023-09-26] MEDS: Acetaminophen 325 MG Tablet 650 MG PO (17:34)
--- NOTE | 2023-09-26 17:34 | NURSING ---
NO OLD EKGS
[2023-09-26] MEDS: Ketorolac 15 MG/ML Vial IV (17:35)
[2023-09-26 17:36] LABS: Absolute Lymphocyte Count 1.12 X10^3/uL (0.83-4.51); Absolute Neutrophil Count 7.3 X10^3/uL (2.0-7.7); Basophil# 0.05 X10^3/uL; Basophil% 0.5 % (0-1); Eosinophil# 0.05 X10^3/uL; Eosinophils% 0.5 % (0-5); Hematocrit 45.4 % (40-54); Hemoglobin 15.6 g/dL (13.0-16.5); Lymphocyte # 1.12 X10^3/ul (0.83-4.51); Lymphocyte % 10.5 % (19-41); Mean Corp Hgb Conc 34.4 g/dL (32-36); Mean Corpuscular Hgb 28.7 pg (27.0-32.0); Mean Corpuscular Volume 83.5 fL (80-94); Mean Platelet Vol. 9.7 fl (6.2-12.0); Monocyte# 2.03 X10^3/uL; Monocyte% 19.1 % (0-10); NRBC Flagged by Analyzer 0 % (0-5); Neutrophil # 7.33 X10^3/uL (2.7-7.7); Neutrophil % 68.8 % (47-70); POSITIVE DIFFERENTIAL YES; Platelet Count 251 K/mm3 (150-450); RBC Distribution Width SD 39.1 fl (35.1-43.9); Red Blood Count 5.44 M/mm3 (4.6-6.2); White Blood Count 10.6 K/mm3 (4.4-11.0)
[2023-09-26 17:37] LABS: Differential Indicated SCAN CRITERIA MET
--- NOTE | 2023-09-26 17:45 | RAD_ITS ---
STUDY: X-RAY CHEST REASON FOR EXAM: Male, 18 years old. Cough, shortness of breath TECHNIQUE: Single AP portable view of the chest. COMPARISON: April 14, 2007 FINDINGS: There are mild left lower lung increased opacities. There is no demonstrated pleural abnormality. Normal size heart. Normal mediastinum and abigail. Normal visualized pulmonary arteries. Normal visualized aortic arch and descending thoracic aorta. Normal visualized thoracic spine. Normal visualized ribs, clavicles, and shoulders. There is no demonstrated abnormality of the visualized soft tissue structures of the upper abdomen. RAD/Chest 1 View (Portable) IMPRESSION: Left lower lung infiltrate. Electronically Signed: Sharif Grossman MD at 18:38 EDT ,
[2023-09-26 17:59] LABS: Platelet Estimate ADEQUATE (ADEQ)
[2023-09-26 18:00] LABS: Red Cell Morphology NORM C+C NORMAL (NORM C&C)
[2023-09-26 18:03] LABS: Anion Gap 11 (5-15); BUN 10 mg/dL (7-18); BUN/Creat Ratio 9.9 RATIO (10-20); Chloride 99 mmol/L (98-107); Creatinine, Serum 1.01 mg/dL (0.70-1.30); EST Glomerular Filtration Rate 100 mL/min (>60); Est Glom Filt Rate - Afr Amer 121 mL/min (>60); Estimated Creatinine Clearance 137.99 ml/min; Glucose 112 mg/dL (74-106); Potassium 3.1 mmol/L (3.5-5.1); Sodium Level 134 mmol/L (136-145); Troponin-I HS 194 pg/mL (3.0-78.0)
[2023-09-26] MEDS: Aspirin 325 MG Tablet PO (18:18)
[2023-09-26 18:19] LABS: D-Dimer Quantitative (DVT/PE) 1.39 FEU/ug/m (0.27-0.49)
--- NOTE | 2023-09-26 18:28 | CT_ITS ---
STUDY: CTA CHEST REASON FOR EXAM: Male, 18 years old. Elevated D-dimer, SOB r/o PE RADIATION DOSAGE (If Supplied By Facility): CTDIvol = ( 13.8 ) mGy, DLP = ( 529.04 ) mGycm TECHNIQUE: The examination was performed with the intravenous administration of IV 100mL [id number]-370. Post-processing of the angiographic images was performed, with multiplanar reformation and 3D reconstruction. Individualized dose optimization techniques were used for this CT. COMPARISON: Chest x-ray FINDINGS: Normal enhancement of the main pulmonary artery and right and left pulmonary arteries. There is limited enhancement of the bilateral peripheral pulmonary arteries. There is no demonstrated pulmonary embolism. Normal thoracic aorta and visualized great vessels. There is no demonstrated aortic dissection. Normal heart and pericardium. Normal mediastinum. Normal hilar regions. Normal visualized trachea and bronchi. The lungs are well expanded. There is left lower lobe airspace consolidation. Normal pleura. Normal chest wall structures. Normal osseous structures. Normal visualized upper abdomen. CT/CTA Chest W/WO Contrast IMPRESSION: CTA chest examination, without a demonstrated pulmonary embolism or arterial dissection. Left lower lobe pneumonia. Electronically Signed: Sharif Grossman MD at 19:23 EDT ,
[2023-09-26] MEDS: Ceftriaxone 1 GM/50 ML BAG IV (20:32)
--- NOTE | 2023-09-26 20:35 | PCM.HP.STD ---
[facility] - General General Date of Admission: 09/26/23 Date of Service: 09/26/23 Chief Complaint: Fever, Cough and SOB. HPI Narrative LEON SMITH, is a 18 M with a past medical history of obesity; with a BMI of 33.5 this admission, history of childhood Asthma, history of Tonsillectomy, history of lateral Left meniscus tear, history of EtOH use and he had a positive home COVID-19 test on Monday. September 24, 2023 who presents to [facility] ER complaining of fever, cough and SOB. Mr. Smith reports his symptoms began approximately 3 to 4 days prior to admission with a gradual onset of progressively worsening dyspnea on exertion, fever and malaise. He admits his daughter apparently became sick first and then both he and his became sick. He denies related nausea, vomiting, diarrhea, constipation or abdominal pain but he does admit to recently diagnosed Rhus Dermatitis he acquired after climbed a tree covered with poison roshni in the course of his work for a local [employer]. In the ER he was noted to have evidence of LLL infiltrate consistent with Community-Acquired Pneumonia due to bacterial superinfection after recently diagnosed COVID-19 complicated by clinical evidence of Acute Respiratory Insufficiency compounded by a mildly elevated troponin of 194 pg/mL present on admission likely due to Acute Cardiac strain and he was then admitted to the PCU for ongoing care for a stay that is expected to extend beyond 2 midnights. [facility] Medical History Alcohol use Cut of hand Back pain Shortness of breath on exertion Asthma Non-smoker History of edema Tear of medial meniscus of left knee Bucket handle tear of lateral meniscus of left knee History of dog bite Home Medications ?Medication ?Instructions ?Recorded ?Last Taken ?Type NK 08/24/23 Unknown History Allergy/AdvReac Type Severity Reaction Status Date / Time No Known Allergies Allergy Verified 09/26/23 16:58 Family History no significant family his Surgical History Hx of tonsillectomy Social History Smoking Status: Never smoker alcohol intake: never 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 HENT: Denies headache, denies stuffy nose, denies sore throat EYES: Denies changes in vision or discharge from eyes. Resp: Patient admits to nonproductive cough and dyspnea on exertion. Cardiac: Denies chest pain, palpitations or heart racing. GI: Denies abdominal pain, denies changes in bowel, denies nausea or vomiting. : Denies changes in urination Extremity: Denies swelling Musculoskeletal: Feels somewhat generally weak and unwell but denies arthralgias or myalgias. Neuro: Patient denies headache, paresthesias or focal neurologic deficits. Heme: Denies any bleeding or bruising Skin: Patient admits to poison roshni rash covering his Left forearm with associated pruritis. Psychiatric: No complaints voiced related uncontrolled depression or anxiety. Endocrine: No polyuria, polydipsia or polyphagia. The rest of the 14 point ROS was negative except for positives in HPI. Vital Signs Vital Signs Vital Signs: 09/26/23 16:58 09/26/23 16:59 09/26/23 17:09 Temperature 98.9 F 101.4 F H Temperature Source Temporal Oral Pulse Rate 120 H 117 H Respiratory Rate 25 H 18 Respiratory Effort Short of Breath Respiratory Depth Normal Respiratory Pattern Tachypnea Blood Pressure 145/93 H 137/63 H Blood Pressure Mean 110 87 Pulse Ox 93 95 Oxygen Delivery Method Room Air Room Air Room Air Oxygen Flow Rate (L/min) Fraction of Inspired Oxygen (FIO2) 09/26/23 17:29 09/26/23 17:59 09/26/23 18:00 Temperature 101.4 F H 101.4 F H Temperature Source Oral Oral Pulse Rate 98 100 Respiratory Rate 24 H 25 H Respiratory Effort Respiratory Depth Respiratory Pattern Blood Pressure 131/66 H 131/66 H Blood Pressure Mean 87 87 Pulse Ox 92 96 Oxygen Delivery Method Room Air Room Air Nasal Cannula Oxygen Flow Rate (L/min) 2 Fraction of Inspired Oxygen (FIO2) 09/26/23 18:07 09/26/23 18:57 09/26/23 18:59 Temperature 99.0 F Temperature Source Oral Pulse Rate 87 87 Respiratory Rate 25 H 25 H Respiratory Effort Respiratory Depth Respiratory Pattern Blood Pressure 143/4 H 143/64 H Blood Pressure Mean 50 90 Pulse Ox 97 97 Oxygen Delivery Method Nasal Cannula Nasal Cannula Nasal Cannula Oxygen Flow Rate (L/min) 3 3 3 Fraction of Inspired Oxygen (FIO2) 96 09/26/23 20:00 09/26/23 20:00 Temperature 98.6 F 98.6 F Temperature Source Oral Oral Pulse Rate 93 93 Respiratory Rate 18 21 H Respiratory Effort Respiratory Depth Respiratory Pattern Blood Pressure 127/71 H 127/71 H Blood Pressure Mean 89 89 Pulse Ox 94 94 Oxygen Delivery Method Room Air Room Air Oxygen Flow Rate (L/min) Fraction of Inspired Oxygen (FIO2) Weight Weight: 227 lb 1.218 oz Body Mass Index (BMI) 33.5 Physical Exam Const alert, oriented x3, average body habitus and healthy appearing Constitutional Narrative: Frequent, nonproductive cough noted. General Appearance: cooperative HEENT normocephalic, head/scalp atraumatic, hearing grossly normal bilaterally and moist oral mucous membranes Eyes PERRL and EOMs intact bilaterally Neck no lymphadenopathy and supple Resp Resp Narrative: Diminished breath sounds throughout Left > Right. Cardio regular rate and regular rhythm GI normal to inspection, nondistended, normoactive bowel sounds, soft to palpation, non-tender and non-distended Extremity normal to inspection and full ROM Skin Skin Narrative: Patient has mild maculopapular rash on his Left forearm but he has no evidence of jaundice or abscess. Neuro oriented x3, CN's II-XII intact bilaterally, moves all extremities and no focal motor deficits Sensorium / Orientation: awake, alert, oriented to person, oriented to place and oriented to time Speech: speech normal Psych affect normal Results Medical Records Data Attestation: I reviewed the patient's medical records Lab / Micro Data Attestation: I reviewed the patient's lab results. 09/26/23 17:20 09/26/23 17:20 Labs: Laboratory Results - last 24 hr 09/26/23 17:20: WBC 10.6, RBC 5.44, Hgb 15.6, Hct 45.4, MCV 83.5, MCH 28.7, MCHC 34.4, RDW Std Deviation 39.1, RDW Coeff of Yuniel 13.0, Plt Count 251, MPV 9.7, Immature Gran % (Auto) 0.600, Neut % (Auto) 68.8, Lymph % (Auto) 10.5 L, [place] % (Auto) 19.1 H, Eos % (Auto) 0.5, Baso % (Auto) 0.5, Absolute Neuts (auto) 7.3, Absolute Lymphs (auto) 1.12, Nucleated RBC % 0, Differential Comment SEE COMMENT, Platelet Estimate ADEQUATE, RBC Morphology NORM C+C, D-Dimer Quant (PE/DVT) 1.39 H*, Sodium 134 L, Potassium 3.1 L, Chloride 99, Carbon Dioxide 24.0, Anion Gap 11, BUN 10, Creatinine 1.01, Estim Creat Clear Calc 137.99, Est GFR (MDRD) Af Amer 121, Est GFR (MDRD) Non-Af 100, BUN/Creatinine Ratio 9.9 L, Glucose 112 H, Calcium 9.0, Troponin I High Sens 194 H* Imaging Radiology Impression Chest X-Ray 09/26/23 17:45 IMPRESSION: Left lower lung infiltrate. Electronically Signed: Sharif Grossman MD at 18:38 EDT , Chest CTA 09/26/23 18:28 IMPRESSION: CTA chest examination, without a demonstrated pulmonary embolism or arterial dissection. Left lower lobe pneumonia. Electronically Signed: Sharif Grossman MD at 19:23 EDT , Assessment & Plan Assessment/Plan (1) Left lower lobe pneumonia: QUALIFIERS: Pneumonia type: due to unspecified organism Qualified Code(s): J18.9 - Pneumonia, unspecified organism (2) COVID-19: (3) Elevated troponin: (4) Respiratory insufficiency: (5) Hypokalemia: (6) Obesity (BMI 30.0-34.9): PLAN: Plan 1. Left lower lobe pneumonia due to suspected bacterial superinfection - Admit to PCU. Continue empiric IV Rocephin and IV azithromycin for presumed community-acquired pneumonia. Check urinary antigens for Legionella and Streptococcus pneumonia. Give Tylenol as needed for pain or fever. 2. Recent history of COVID-19 with mildly elevated D-dimer of 1.39 present on admission complicating #1 - Place on contact and droplet precautions and treat supportively with Decadron, vitamin D3, vitamin C and Zinc. 3. Acute hypoxic respiratory insufficiency due to #1 & #2 - Wean supplemental oxygen as tolerated. 4. Mildly elevated troponin evaded troponin of 194 pg/mL present on admission arising from #1 - #3 which is likely causing acute cardiac strain - Serialize troponin. Continue full dose aspirin and check echocardiogram to evaluate LVEF. Check urine drug screen to evaluate for possible stimulants. 5. Hypokalemia of 3.1 mmol/L present on admission adding to the complexity of #1 - #4 - Give supplemental KCl and then recheck level in a.m. to ensure improvement. 6. Obesity; with a BMI of 33.5 this admission adding to the pathology of #1 - #5 - Weight loss will be recommended. Check TSH. 7. History of childhood Asthma - Stable with no evidence of acute flare at this time. Continue as needed nebulizers. 8. History of Tonsillectomy - Noted. 9. History of lateral Left meniscus tear - Stable. 10. History of EtOH use - Noted with patient having no history of significant alcohol abuse or previous withdrawal. 11. DVT/GI prophylaxis - Lovenox 40 mg sq daily plus Pepcid 20 mg PO BID while on Decadron. Total time: Approximately 75 minutes. Charges/Coding Visit Charges Inpatient E&M: 14089 Init Hosp L3
[2023-09-26 20:42] LABS: BNP,B-Type NATRIURETIC PEPTIDE 19.8 pg/mL (0-100)
--- NOTE | 2023-09-26 20:59 | ECHOD_ITS ---
Reason For Study: SOB Procedure This was a 2D Doppler, Color Flow transthoracic echocardiogram. Exam performed portable in patient room. Left Ventricle Normal size and thickness. The left ventricular ejection fraction is 60 %. Normal diastololic function. Right Ventricle Normal right ventricle. Atria The left and right atria are normal. Mitral Valve Trivial mitral valve insufficiency. Tricuspid Valve Trivial tricuspid valve insufficiency. Normal pulmonary artery pressure. Aortic Valve Trisinus/trileaflet aortic valve. Pulmonic Valve Trivial pulmonic valve insufficiency. Great Vessels Normal sized aortic root. Pericardium/Pleural Trivial pericardial effusion. MMode/2D Measurements & Calculations LVIDd: 5.3 cm IVSd: 0.88 cm Ao root diam: 2.6 cm LVIDs: 3.9 cm LVPWd: 0.92 cm RVDd: 3.6 cm FS: 27.2 % LAV(MOD-bp): 32.9 ml LVAd ap4: 36.8 cm2 LVAd ap2: 28.8 cm2 LAV(MOD-bp) Indexed: 15.1 ml/m2 LVLd ap4: 8.8 cm LVLd ap2: 8.4 cm LAV(MOD-sp2): 32.7 ml EDV(MOD-sp4): 128.0 ml EDV(MOD-sp2): 80.3 ml LAV(MOD-sp4): 30.7 ml EDV(sp4-el): 131.0 ml EDV(sp2-el): 83.1 ml LVAs ap4: 21.0 cm2 LVAs ap2: 16.5 cm2 LVLs ap4: 7.4 cm LVLs ap2: 7.5 cm ESV(MOD-sp4): 49.3 ml ESV(MOD-sp2): 29.5 ml ESV(sp4-el): 50.2 ml ESV(sp2-el): 30.5 ml EF(MOD-sp4): 61.5 % EF(MOD-sp2): 63.3 % EF(sp4-el): 61.7 % SV(MOD-sp4): 78.8 ml SV(MOD-sp2): 50.8 ml SV(sp4-el): 80.8 ml LA dimension(2D): 3.8 cm LA A4 area: 14.0 cm2 RA A4 area: 9.8 cm2 Doppler Measurements & Calculations MV E max meng: 62.4 cm/sec Lat Peak E' Meng: 17.6 cm/sec Med Peak E' Meng: 16.0 cm/sec MV A max meng: 41.3 cm/sec E/E' lat: 3.6 E/E' med: 3.9 MV E/A: 1.5 Ao V2 max: 117.3 cm/sec LV V1 max: 84.7 cm/sec PA V2 max: 99.9 cm/sec Ao max P.5 mmHg LV V1 max P.9 mmHg TR max meng: 208.2 cm/sec TR max P.3 mmHg ECHO/Echo Complete Interpretation Summary The left ventricular ejection fraction is 60 %. Trivial pericardial effusion. Ordering Physician: Toribio Fierro Performed By: Emely Calixto RDCS
[2023-09-26] MEDS: Azithromycin 500 MG in Dextrose 5%-Water (250mL Bag) 250 ML 250 MG IV (21:06)
[2023-09-26 21:28] LABS: Troponin-I HS 161 pg/mL (3.0-78.0)
[2023-09-26 23:18] LABS: Troponin-I HS 113 pg/mL (3.0-78.0)
[2023-09-26] MEDS: dexAMETHasone 10 MG/ML Vial 6 MG IV (23:20)
[2023-09-26] MEDS: Zinc Sulfate 50 mg zinc (220 mg) ORAL capsule PO (23:20)
[2023-09-26] MEDS: Cholecalciferol (Vit D3) 125 MCG CAPSULE (5,000 UNITS) PO (23:20)
[2023-09-26] MEDS: Lactobacillis Acidophilus 2 CAP PO (23:20)
[2023-09-26] MEDS: Potassium Chloride Oral Tablet 20 MEQ 60 MEQ PO (23:21)
[2023-09-26] MEDS: Famotidine 20 MG Tablet PO (23:21)
[2023-09-26] MEDS: guaiFENesin 1,200 MG Tablet 1200 MG PO (23:21)
[2023-09-26] MEDS: KCL 20MEQ in 0.9% NS 20 MEQ/1,000 ML IV.SOLN. 125 MEQ IV (23:34)
[2023-09-26] MEDS: 0.9% Saline Lock 10 ML Syringe IV (23:35)
[2023-09-27 01:26] LABS: Amphetamine Urine VISTA NEGATIVE (<1000 ng/mL); Barbiturate Urine VISTA NEGATIVE (< 200 ng/mL); Benzodiazepine Urine VISTA NEGATIVE (< 200 ng/mL); Cocaine Urine VISTA NEGATIVE (< 300 ng/mL); Ecstacy Urine VISTA NEGATIVE (< 500 ng/mL); Methadone Urine VISTA NEGATIVE (< 300 ng/mL); PCP Urine VISTA NEGATIVE (< 25 ng/mL); THC Urine VISTA NEGATIVE (< 50 ng/mL); Vista UDS pH Range 5
[2023-09-27 04:13] VITALS: BP 138/79; PULSE 85; RESP 18; TEMP 36.7; O2SAT 98
[2023-09-27] MEDS: KCL 20MEQ in 0.9% NS 20 MEQ/1,000 ML IV.SOLN. 125 MEQ IV (07:28)
[2023-09-27 07:44] LABS: Absolute Lymphocyte Count 0.96 X10^3/uL (0.83-4.51); Absolute Neutrophil Count 6.6 X10^3/uL (2.0-7.7); Basophil# 0.03 X10^3/uL; Basophil% 0.4 % (0-1); Eosinophil# 0.01 X10^3/uL; Eosinophils% 0.1 % (0-5); Lymphocyte # 0.96 X10^3/ul (0.83-4.51); Lymphocyte % 11.8 % (19-41); Mean Corp Hgb Conc 33.3 g/dL (32-36); Mean Corpuscular Hgb 28.2 pg (27.0-32.0); Mean Corpuscular Volume 84.5 fL (80-94); Mean Platelet Vol. 9.5 fl (6.2-12.0); Monocyte# 0.53 X10^3/uL; Monocyte% 6.5 % (0-10); NRBC Flagged by Analyzer 0 % (0-5); Neutrophil # 6.56 X10^3/uL (2.7-7.7); Neutrophil % 80.7 % (47-70); Platelet Count 242 K/mm3 (150-450); RBC Distribution Width SD 40.1 fl (35.1-43.9); Red Blood Count 4.97 M/mm3 (4.6-6.2); White Blood Count 8.1 K/mm3 (4.4-11.0)
[2023-09-27 08:22] LABS: ALB/GLOB Ratio 0.9 RATIO (0.9-2.4); AST(SGOT) 22 U/L (15-37); Alanine Aminotransfer ALT/SGPT 20 U/L (16-61); Albumin, Serum 3.4 g/dL (3.2-5.0); Alkaline Phosphatase 64 U/L (45-117); Anion Gap 9 (5-15); BUN 10 mg/dL (7-18); BUN/Creat Ratio 12.8 RATIO (10-20); Calcium,Total 8.5 mg/dL (8.5-10.1); Chloride 104 mmol/L (98-107); Creatinine, Serum 0.78 mg/dL (0.70-1.30); EST Glomerular Filtration Rate 135 mL/min (>60); Est Glom Filt Rate - Afr Amer 163 mL/min (>60); Estimated Creatinine Clearance 176.41 ml/min; Globulin 3.6 g/dL (2.2-4.2); Glucose 131 mg/dL (74-106); Magnesium 2.4 mg/dL (1.6-2.6); Potassium 4.4 mmol/L (3.5-5.1); Sodium Level 137 mmol/L (136-145)
--- NOTE | 2023-09-27 08:57 | PCM.PN.HOSP ---
Reason for Visit Reason for Visit: Diagnoses Obesity, unspecified (09/26/23) Hypokalemia (09/26/23) Pneumonia, unspecified organism (09/26/23) Other abnormalities of breathing (09/26/23) Other specified abnormal findings of blood chemistry (09/26/23) COVID-19 (09/26/23) Subjective Subjective Breathing better. Still with paroxysms of cough. Objective Data Objective Data Vital Signs: Vital Signs Temp Pulse Resp BP Pulse Ox O2 Del Method O2 Flow Rate 36.7 C 85 18 138/79 H 98 Room Air 3 09/27/23 04:13 09/27/23 04:13 09/27/23 04:13 09/27/23 04:13 09/27/23 04:13 09/27/23 04:20 09/26/23 18:59 FiO2 96 09/26/23 18:07 Oxygen Flow Rate (L/min) 3 Oxygen Delivery Method Room Air Weight: 103.8 kg Body Mass Index (BMI) 34.7 Intake & Output: Intake and Output for Last 24 Hours 09/25/23 09/26/23 09/27/23 23:59 23:59 23:59 Intake Total 1305 / 1305 987.5 / 987.5 Output Total 600 / 600 Balance 705 / 705 987.5 / 987.5 Lab / Micro Data 09/27/23 07:36 09/27/23 07:36 Labs: Laboratory Results - last 24 hr 09/26/23 17:20: WBC 10.6, RBC 5.44, Hgb 15.6, Hct 45.4, MCV 83.5, MCH 28.7, MCHC 34.4, RDW Std Deviation 39.1, RDW Coeff of Yuniel 13.0, Plt Count 251, MPV 9.7, Immature Gran % (Auto) 0.600, Neut % (Auto) 68.8, Lymph % (Auto) 10.5 L, [place] % (Auto) 19.1 H, Eos % (Auto) 0.5, Baso % (Auto) 0.5, Absolute Neuts (auto) 7.3, Absolute Lymphs (auto) 1.12, Nucleated RBC % 0, Differential Comment SEE COMMENT, Platelet Estimate ADEQUATE, RBC Morphology NORM C+C, D-Dimer Quant (PE/DVT) 1.39 H*, Sodium 134 L, Potassium 3.1 L, Chloride 99, Carbon Dioxide 24.0, Anion Gap 11, BUN 10, Creatinine 1.01, Estim Creat Clear Calc 137.99, Est GFR (MDRD) Af Amer 121, Est GFR (MDRD) Non-Af 100, BUN/Creatinine Ratio 9.9 L, Glucose 112 H, Calcium 9.0, Troponin I High Sens 194 H*, B-Natriuretic Peptide 19.8 09/26/23 20:50: Troponin I High Sens 161 H* 09/26/23 22:40: Troponin I High Sens 113 H 09/27/23 00:59: Urine Opiates Screen NEGATIVE, Urine Methadone Screen NEGATIVE, Ur Barbiturates Screen NEGATIVE, Ur Phencyclidine Scrn NEGATIVE, Ur Amphetamines Screen NEGATIVE, MDMA (Ecstasy) Screen NEGATIVE, U Benzodiazepines Scrn NEGATIVE, Urine Cocaine Screen NEGATIVE, U Cannabinoids Screen NEGATIVE, Ur Drug Screen Comment 09/27/23 07:36: WBC 8.1, RBC 4.97, Hgb 14.0, Hct 42.0, MCV 84.5, MCH 28.2, MCHC 33.3, RDW Std Deviation 40.1, RDW Coeff of Yuniel 13.0, Plt Count 242, MPV 9.5, Immature Gran % (Auto) 0.500, Neut % (Auto) 80.7 H, Lymph % (Auto) 11.8 L, [place] % (Auto) 6.5, Eos % (Auto) 0.1, Baso % (Auto) 0.4, Absolute Neuts (auto) 6.6, Absolute Lymphs (auto) 0.96, Nucleated RBC % 0, Sodium 137, Potassium 4.4, Chloride 104, Carbon Dioxide 24.0, Anion Gap 9, BUN 10, Creatinine 0.78, Estim Creat Clear Calc 176.41, Est GFR (MDRD) Af Amer 163, Est GFR (MDRD) Non-Af 135, BUN/Creatinine Ratio 12.8, Glucose 131 H, Calcium 8.5, Phosphorus 3.0, Magnesium 2.4, Total Bilirubin 0.40, AST 22, ALT 20, Alkaline Phosphatase 64, Total Protein 7.0, Albumin 3.4, Globulin 3.6, Albumin/Globulin Ratio 0.9 Micro: Microbiology 09/27/23 00:59 Urine, Clean Catch Legionella Antigen - Final 09/27/23 00:59 Urine, Clean Catch Streptococcus pneumoniae Antigen (M - Final Radiography Diagnostic Testing: Radiology Impression Chest X-Ray 09/26/23 17:45 IMPRESSION: Left lower lung infiltrate. Electronically Signed: Sharif Grossman MD at 18:38 EDT Reading Location ID and State: [address] [place] [address] , Service support , Chest CTA 09/26/23 18:28 IMPRESSION: CTA chest examination, without a demonstrated pulmonary embolism or arterial dissection. Left lower lobe pneumonia. Electronically Signed: Sharif Grsosman MD at 19:23 EDT Reading Location ID and State: [facility] / [place] , Service support , Physical Exam Const alert and no apparent distress Constitutional Narrative: up at the side of bed. no respiratory distress. no conversational dyspnea. Resp normal respiratory effort, no retractions, no use of accessory muscles and clear to auscultation bilaterally Cardio regular rate, regular rhythm, S1 normal heart sound and S2 normal heart sound Neuro Sensorium / Orientation: awake and alert Assessment & Plan Assessment/Plan (1) Left lower lobe pneumonia: QUALIFIERS: Pneumonia type: due to unspecified organism Qualified Code(s): J18.9 - Pneumonia, unspecified organism (2) COVID-19: (3) Elevated troponin: (4) Respiratory insufficiency: (5) Hypokalemia: (6) Obesity (BMI 30.0-34.9): PLAN: Plan Pneumococcal pneumonia, suspected LLL pneumonia strep and legionella antigens negative. Sputum culture negative. on CTX and azithromycin pulmonary toilet complicated by COVID-19 Acute COVID-19 positive home test on 09/23. on dexamethasone. Elevated troponin Initial troponin 194, trending down to 113. echo shows an EF 60% with trivail pericardial effusion. likely demand ischemia from pneumonia and COVID 19 Hypokalemia: resolved with replacement. Chronic conditions: obesity class I: complicates care and recovery. History of childhood Asthma - Stable with no evidence of acute flare at this time. Continue as needed nebulizers. VTE prophylaxis: Lovenox 40 mg sq daily Discharge home. Off of work until the , then slowly ease back into his normal routine. I told him that it may be a couple of weeks before he is back to 100%
[2023-09-27] MEDS: Ceftriaxone 1 GM/50 ML BAG IV (09:28)
[2023-09-27] MEDS: 0.9% Saline Lock 10 ML Syringe IV (09:31)
[2023-09-27] MEDS: Cholecalciferol (Vit D3) 125 MCG CAPSULE (5,000 UNITS) PO (09:32)
[2023-09-27] MEDS: Famotidine 20 MG Tablet PO (09:32)
[2023-09-27] MEDS: Zinc Sulfate 50 mg zinc (220 mg) ORAL capsule PO (09:32)
[2023-09-27] MEDS: Lactobacillis Acidophilus 2 CAP PO (09:32)
[2023-09-27] MEDS: dexAMETHasone 10 MG/ML Vial 6 MG IV (09:32)
[2023-09-27] MEDS: guaiFENesin 1,200 MG Tablet 1200 MG PO (09:32)
[2023-09-27] MEDS: Ascorbic Acid 500 MG Tablet 1000 MG PO (09:32)
[2023-09-27 10:01] VITALS: BP 132/69; PULSE 83; RESP 18; TEMP 36.8; O2SAT 98
[2023-09-27] MEDS: Azithromycin 500 MG in Dextrose 5%-Water (250mL Bag) 250 ML 250 MG IV (10:37)
--- NOTE | 2023-09-27 11:40 | RAD_ITS ---
STUDY: X-RAY CHEST REASON FOR EXAM: Male, 18 years old. Pneumonia. Follow-up. TECHNIQUE: Frontal and lateral views of the chest. COMPARISON: September 26, 2023 FINDINGS: Increased parenchymal opacity at the left base with increase in left pleural effusion. Findings compatible with worsening left lower lobe pneumonia with effusion. There is no demonstrated pleural abnormality. Normal size heart. Normal mediastinum and abigail. Normal visualized pulmonary arteries. Normal visualized aortic arch and descending thoracic aorta. Normal visualized thoracic spine. Normal visualized ribs, clavicles, and shoulders. No abnormality of the visualized soft tissue structures of the upper abdomen. RAD/Chest PA and Lateral IMPRESSION: Worsening left lower lobe parenchymal opacity (pneumonia) with increase in left effusion. Electronically Signed: Christopher Lomas MD at 12:43 EDT ,
--- NOTE | 2023-09-27 12:02 | PCM.DC.SUM ---
Providers Date of Admission: 09/26/23 Primary Care Physician: No Primary Care Phys Reason For Visit: LEFT LOWER LOBE PNEUMONIA, SUBACUTE COVID-19 Diagnosis Discharge Diagnosis (1) Left lower lobe pneumonia: Status: Acute Code(s): J18.9 - Pneumonia, unspecified organism Qualifiers: Pneumonia type: due to unspecified organism Qualified Code(s): J18.9 - Pneumonia, unspecified organism (2) COVID-19: Status: Acute Code(s): U07.1 - COVID-19 (3) Elevated troponin: Status: Acute Code(s): R79.89 - Other specified abnormal findings of blood chemistry (4) Respiratory insufficiency: Status: Acute Code(s): R06.89 - Other abnormalities of breathing (5) Hypokalemia: Status: Acute Code(s): E87.6 - Hypokalemia (6) Obesity (BMI 30.0-34.9): Status: Acute Code(s): E66.9 - Obesity, unspecified Plan Pneumococcal pneumonia, suspected LLL pneumonia strep and legionella antigens negative. Sputum culture negative. on CTX and azithromycin. Change to LVQ to complete 7 days of abx pulmonary toilet complicated by COVID-19 Acute COVID-19 positive home test on 09/23. on dexamethasone. Elevated troponin Initial troponin 194, trending down to 113. echo shows an EF 60% with trivail pericardial effusion. likely demand ischemia from pneumonia and COVID 19 Hypokalemia: resolved with replacement. Chronic conditions: obesity class I: complicates care and recovery. History of childhood Asthma - Stable with no evidence of acute flare at this time. Continue as needed nebulizers. VTE prophylaxis: Lovenox 40 mg sq daily Discharge home. Off of work until the , then slowly ease back into his normal routine. I told him that it may be a couple of weeks before he is back to 100% Medications at Discharge Home Medications acetaminophen 325 mg tablet 1,000 mg (3.0769 x 325 mg) PO Q8H PRN PRN Pain 1-10 Or Fever #0 tabs 09/27/23 codeine 10 mg-guaifenesin 100 mg/5 mL oral liquid (Guaifenesin AC) 10 ml PO Q6H PRN cough #120 mL 09/27/23 levofloxacin 750 mg tablet 750 mg PO Q24H #5 tabs 09/27/23 Hospital Course Operations None Procedures None Summary of Care Provided Minutes Spent on Discharge: 32 Weight / BMI Weight Weight: 103.8 kg Body Mass Index (BMI) 34.7 ABG / Lab / Microbiology Data 09/27/23 07:36 09/27/23 07:36 Laboratory: Laboratory Results - last 24 hr 09/26/23 17:20: WBC 10.6, RBC 5.44, Hgb 15.6, Hct 45.4, MCV 83.5, MCH 28.7, MCHC 34.4, RDW Std Deviation 39.1, RDW Coeff of Yuniel 13.0, Plt Count 251, MPV 9.7, Immature Gran % (Auto) 0.600, Neut % (Auto) 68.8, Lymph % (Auto) 10.5 L, [place] % (Auto) 19.1 H, Eos % (Auto) 0.5, Baso % (Auto) 0.5, Absolute Neuts (auto) 7.3, Absolute Lymphs (auto) 1.12, Nucleated RBC % 0, Differential Comment SEE COMMENT, Platelet Estimate ADEQUATE, RBC Morphology NORM C+C, D-Dimer Quant (PE/DVT) 1.39 H*, Sodium 134 L, Potassium 3.1 L, Chloride 99, Carbon Dioxide 24.0, Anion Gap 11, BUN 10, Creatinine 1.01, Estim Creat Clear Calc 137.99, Est GFR (MDRD) Af Amer 121, Est GFR (MDRD) Non-Af 100, BUN/Creatinine Ratio 9.9 L, Glucose 112 H, Calcium 9.0, Troponin I High Sens 194 H*, B-Natriuretic Peptide 19.8 09/26/23 20:50: Troponin I High Sens 161 H* 09/26/23 22:40: Troponin I High Sens 113 H 09/27/23 00:59: Urine Opiates Screen NEGATIVE, Urine Methadone Screen NEGATIVE, Ur Barbiturates Screen NEGATIVE, Ur Phencyclidine Scrn NEGATIVE, Ur Amphetamines Screen NEGATIVE, MDMA (Ecstasy) Screen NEGATIVE, U Benzodiazepines Scrn NEGATIVE, Urine Cocaine Screen NEGATIVE, U Cannabinoids Screen NEGATIVE, Ur Drug Screen Comment 09/27/23 07:36: WBC 8.1, RBC 4.97, Hgb 14.0, Hct 42.0, MCV 84.5, MCH 28.2, MCHC 33.3, RDW Std Deviation 40.1, RDW Coeff of Yuniel 13.0, Plt Count 242, MPV 9.5, Immature Gran % (Auto) 0.500, Neut % (Auto) 80.7 H, Lymph % (Auto) 11.8 L, [place] % (Auto) 6.5, Eos % (Auto) 0.1, Baso % (Auto) 0.4, Absolute Neuts (auto) 6.6, Absolute Lymphs (auto) 0.96, Nucleated RBC % 0, Sodium 137, Potassium 4.4, Chloride 104, Carbon Dioxide 24.0, Anion Gap 9, BUN 10, Creatinine 0.78, Estim Creat Clear Calc 176.41, Est GFR (MDRD) Af Amer 163, Est GFR (MDRD) Non-Af 135, BUN/Creatinine Ratio 12.8, Glucose 131 H, Calcium 8.5, Phosphorus 3.0, Magnesium 2.4, Total Bilirubin 0.40, AST 22, ALT 20, Alkaline Phosphatase 64, Total Protein 7.0, Albumin 3.4, Globulin 3.6, Albumin/Globulin Ratio 0.9 Microbiology: Microbiology 09/27/23 00:45 Sputum, Expectorated/Coughed Gram Stain - Final 09/27/23 00:59 Urine, Clean Catch Legionella Antigen - Final 09/27/23 00:59 Urine, Clean Catch Streptococcus pneumoniae Antigen (M - Final Radiography Diagnostic Testing: Radiology Impression Chest X-Ray 09/26/23 17:45 IMPRESSION: Left lower lung infiltrate. Electronically Signed: Sharif Grossman MD at 18:38 EDT , Chest CTA 09/26/23 18:28 IMPRESSION: CTA chest examination, without a demonstrated pulmonary embolism or arterial dissection. Left lower lobe pneumonia. Electronically Signed: Sharif Grossman MD at 19:23 EDT , Echocardiogram 09/26/23 20:59 Interpretation Summary The left ventricular ejection fraction is 60 %. Trivial pericardial effusion. Ordering Physician: Toribio Fierro Performed By: Emely Calixto RDCS D/C Instructions Discharge Diet: No restrictions Return to work on: 10/02/23 (slowly ease back into your normal routine ) Meaningful Use Info Meaningful Use Meaningful Use Diagnoses (Choose all that apply): None applicable Ischemic Stroke Statin Dosing Therapy Reference: STATIN DOSE THERAPY REFERENCE: * Patients > 75 years receive moderate or high dose statin therapy. * Patients 75 years or YOUNGER should receive HIGH intensity statin dose unless contraindicated. You will be required to document reason for non-treatment if statin daily dose does not meet guidelines. HIGH DOSE STATIN THERAPY DAILY Atorvastatin > than or = to 40 mg Rosuvastatin > than or = to 20 mg Amlodipine + Atorvastatin > than or = to 2.5/40 mg Ezetimibe + Simvastatin 10/80 mg Simvastatin 80mg Discharge Plan Admission Admit Date/Time: 09/26/23 20:53 Primary Reason for Your Visit: pneumonia. covid Attending Provider: Dereck Murcia Primary Care Provider: Marian Cline,No Primary Consulting Providers: Toribio Fierro Instructions Additional Instructions / Restrictions: Slowly ease back into your normal routine. Return to work no sooner than on October 01. If you are feeling worse, increased shortness of breath, please return to the emerency room. Discharge Orders/Prescriptions Prescriptions: New acetaminophen 325 mg Tablet 1,000 mg PO Q8H PRN PRN (Reason: Pain 1-10 Or Fever) Qty: 0 0RF codeine-guaifenesin [Guaifenesin AC] 10-100 mg/5 mL liquid 10 ml PO Q6H PRN (Reason: cough) Qty: 120 0RF levofloxacin 750 mg tablet 750 mg PO Q24H Qty: 5 0RF Rx Instructions: start on 09/28/2023 Referrals / Follow Up: Care Physician,No Primary [Primary Care Provider] - Disposition Disposition (needs filled in before D/C Order can be placed): Home, Self Care Charges/Coding Visit Charges Inpatient E&M: 45744 Disch Hosp >30min
--- NOTE | 2023-09-27 13:00 | CASEMGMT ---
RN CM Face to Face with patient for initial transition planning/care coordination assessment. RN CM introduced self and role at [facility]. Patient lying in bed, alert and oriented. Patient willing to participate in assessment and is able to answer all questions appropriately. Care providers, pharmacy, and demographics verified. Strata: 2 PCP: none, PCP list and [facility] info provided. Specialists: none Preferred Pharmacy: [facility] Insurance: [place] Prescription Benefit: yes Living Will/HPOA: none LNOK: grandmother, significant other Living Arrangements: Patient lives with significant other in a first floor aparment with 7 steps and railing to enter. Patient is independent and able to ambulate stairs. Transportation: self, significant other. DME/HHC: Patient states he has [facility] and shower chair. No previous HHC or SNF Patient wishes to discharge home, denies need for home health at this time. Patient states he has no further needs or concerns at this time. CM to follow for discharge planning needs that may arise. Disposition Plan: Patient to discharge home with family support and follow-up plans in place. aJcklyn RIBEIRO, RN, CM
[2023-09-27 15:00] VITALS: BP 136/79; PULSE 87; RESP 20; TEMP 36.8; O2SAT 99
== END 2023-09-27 15:10 | disposition home or self-care (01) | DRG 177 ==
LOC: ED 18:14 → PCU 21:27
PROVIDERS: Admitting Provider Internal Medicine; Emergency Provider Emergency Medicine
DX: U07.1 COVID-19 (principal); J13 Pneumonia due to Streptococcus pneumoniae; J12.82 Pneumonia due to coronavirus disease 2019; I24.89 Other forms of acute ischemic heart disease; J45.909 Unspecified asthma, uncomplicated; E66.9 Obesity, unspecified; E87.6 Hypokalemia; R09.02 Hypoxemia; Z68.33 Body mass index [BMI] 33.0-33.9, adult
CPT/HCPCS: 36415; 71045; 71046; 71275; 80048; 80053; 80307; 83735; 83880; 84100; 84484; 85025; 85379; 87070; 87205; 87449; 93005; 93306; 99285; J7030; Q9967; A4216